=== PATIENT | female | born 1950 | race Caucasian/White ===

== ENCOUNTER 2017-07-01 16:00 | Observation (INO) | payer MEDICARE, BC ==
--- NOTE | 2017-07-01 16:50 | PDOC ---
Rapid Medical Evaluation Time Seen by Provider: 07/01/17 16:48 Medical Evaluation: 07/01/17 16:48 I have performed a brief in-person evaluation of this patient. The patient presents with a chief complaint of: Fatigue w/ nasal congestion, cough and sob x 4 days. H/o asthma, s/p L shoulder surgery 06/16, hypothyroid, HLD Pertinent physical exam findings:Stable w/ ?crackles on lung exam I have ordered the following:ekg/cxr/labs The patient will proceed to the ED for further evaluation.
[2017-07-01 16:53] VITALS: BMI 32.9
[2017-07-01 17:06] LABS: EOS % 0.7 % (0-4.5); HEMATOCRIT 36.1 % (32.4-45.2); HEMOGLOBIN 11.9 GM/dL (10.7-15.3); LYMPH % 19.9 % (8-40); MCH 30.3 pg (25.7-33.7); MCHC 32.9 g/dl (32.0-36.0); MEAN CELL VOLUME 92.2 fl (80-96); MEAN PLT VOLUME 7.4 fl (7.5-11.1); MONO % 15.6 % (3.8-10.2); NEUT % 62.8 % (42.8-82.8); PLATELET COUNT 242 K/MM3 (134-434); RBC 3.91 M/mm3 (3.60-5.2); RDW 13.4 % (11.6-15.6); WHITE BLOOD COUNT 5.2 K/mm3 (4.0-10.0)
--- NOTE | 2017-07-01 17:13 | PDOC ---
History of Present Illness <Vaishali Cunningham - Last Filed: 07/01/17 17:46> - General History Source: Patient Exam Limitations: No Limitations - History of Present Illness Initial Comments: 07/01/17 17:54 The patient is a 67-year-old female with a significant past medical history of HTN, HLD, asthma, and hypothyroidism, and presents to the emergency department with cough, nasal congestion, and shortness of breath for 4 days. She reports worsened shortness of breath today, which prompted the visit to the ED. She states her shortness of breath is worsened when lying flat on her back. She notes having a productive cough with clear phlegm. She states the nasal congestion started yesterday. She reports taking Mucinex and using her inhaler with no significant relief. The patient denies chest pain, headache, and dizziness. The patient denies fever , chills, nausea, vomit, diarrhea and constipation. The patient denies dysuria, frequency, urgency and hematuria. Allergies: penicillins Past Surgical History: L total shoulder replacement (06/06/17) Social History: No toxic habits reported PCP: Dr. Bautista <Denise Enrique - Last Filed: 07/01/17 17:54> <Radha Jackson - Last Filed: 07/02/17 00:57> - General Chief Complaint: Shortness of Breath Stated Complaint: COUGH, WEAKNESS Time Seen by Provider: 07/01/17 16:48 Past History - Past Medical History COPD: No - Suicide/Smoking/Psychosocial Hx Smoking History: Never smoked Have you smoked in the past 12 months: No Information on smoking cessation initiated: No Hx Alcohol Use: No Drug/Substance Use Hx: No Substance Use Type: None <Vaishali Cunningham - Last Filed: 07/01/17 17:46> <Denise Enrique - Last Filed: 07/01/17 17:54> <Radha Jackson - Last Filed: 07/02/17 00:57> - Past Medical History Allergies/Adverse Reactions: Allergies Allergy/AdvReac Type Severity Reaction Status Date / Time Penicillins Allergy Verified 07/01/17 16:54 Home Medications: Ambulatory Orders Atorvastatin Ca [Lipitor] 10 mg PO HS 07/01/17 Chlorthalidone 0 mg PO DAILY 07/01/17 Doxycycline Hyclate 100 mg PO BID #14 capsule 07/01/17 Levothyroxine [Synthroid -] 0 mcg PO DAILY 07/01/17 Review of Systems - Review of Systems Able to Perform ROS?: Yes Comments:: 07/01/17 17:54 GENERAL/CONSTITUTIONAL: No fever or chills. No weakness. HEAD, EYES, EARS, NOSE AND THROAT: No change in vision. No ear pain or discharge. No sore throat. (+) Nasal congestion. CARDIOVASCULAR: (+) Shortness of breath. No chest pain. RESPIRATORY: (+) Cough. No wheezing, or hemoptysis. GASTROINTESTINAL: No nausea, vomiting, diarrhea or constipation. GENITOURINARY: No dysuria, frequency, or change in urination. MUSCULOSKELETAL: No joint or muscle swelling or pain. No neck or back pain. SKIN: No rash NEUROLOGIC: No headache, vertigo, loss of consciousness, or change in strength/ sensation. ENDOCRINE: No increased thirst. No abnormal weight change. HEMATOLOGIC/LYMPHATIC: No anemia, easy bleeding, or history of blood clots. ALLERGIC/IMMUNOLOGIC: No hives or skin allergy. <Denise Enrique - Last Filed: 07/01/17 17:54> *Physical Exam - Vital Signs Last Vital Signs Temp Pulse Resp BP Pulse Ox 99.3 F 98 H 24 134/77 98 07/01/17 16:47 07/01/17 16:47 07/01/17 16:47 07/01/17 16:47 07/01/17 16:47 <Vaishali Cunningham - Last Filed: 07/01/17 17:46> - Vital Signs Last Vital Signs Temp Pulse Resp BP Pulse Ox 99.3 F 98 H 24 134/77 98 07/01/17 16:47 07/01/17 16:47 07/01/17 16:47 07/01/17 16:47 07/01/17 16:47 - Physical Exam Comments: 07/01/17 18:08 GENERAL: Awake, alert, and fully oriented, in no acute distress HEAD: No signs of trauma EYES: PERRLA, EOMI, sclera anicteric, conjunctiva clear ENT: Auricles normal inspection, hearing grossly normal, nares patent, oropharynx clear without exudates. Moist mucosa NECK: Normal ROM, supple, no lymphadenopathy, JVD, or masses LUNGS: (+) Decreased air entry bilaterally. No wheezes, and no crackles HEART: Regular rate and rhythm, normal S1 and S2, no murmurs, rubs or gallops ABDOMEN: Soft, nontender, normoactive bowel sounds. No guarding, no rebound. No masses EXTREMITIES: Normal range of motion, no edema. No clubbing or cyanosis. No cords, erythema, or tenderness NEUROLOGICAL: Cranial nerves II through XII grossly intact. Normal speech, normal gait SKIN: Warm, Dry, normal turgor, no rashes or lesions noted. <Denise Enrique - Last Filed: 07/01/17 17:54> - Vital Signs Last Vital Signs Temp Pulse Resp BP Pulse Ox 100.6 F H 112 H 20 131/60 95 07/01/17 19:49 07/01/17 19:49 07/01/17 19:49 07/01/17 19:49 07/01/17 19:49 <Radha Jackson - Last Filed: 07/02/17 00:57> ED Treatment Course - LABORATORY CBC & Chemistry Diagram: 07/01/17 16:56 07/01/17 16:56 - ADDITIONAL ORDERS Additional order review: 07/01/17 16:56 RBC 3.91 MCV 92.2 MCHC 32.9 RDW 13.4 MPV 7.4 L Neutrophils % 62.8 Lymphocytes % 19.9 Monocytes % 15.6 H Eosinophils % 0.7 Basophils % 1.0 <Vaishali Cunningham - Last Filed: 07/01/17 17:46> - LABORATORY CBC & Chemistry Diagram: 07/01/17 16:56 07/01/17 16:56 - ADDITIONAL ORDERS Additional order review: Laboratory Results 07/01/17 16:56 Sodium 134 L Potassium 3.7 Chloride 99 Carbon Dioxide 28 Anion Gap 7 L BUN 12 Creatinine 1.1 H Creat Clearance w eGFR 49.25 Random Glucose 109 H Calcium 8.4 L Total Bilirubin 0.5 AST 15 ALT 20 Alkaline Phosphatase 101 Creatine Kinase 97 Troponin I < 0.02 Total Protein 6.9 Albumin 3.4 07/01/17 16:56 RBC 3.91 MCV 92.2 MCHC 32.9 RDW 13.4 MPV 7.4 L Neutrophils % 62.8 Lymphocytes % 19.9 Monocytes % 15.6 H Eosinophils % 0.7 Basophils % 1.0 <Denise Enrique - Last Filed: 07/01/17 17:54> - LABORATORY CBC & Chemistry Diagram: 07/01/17 16:56 07/01/17 16:56 - ADDITIONAL ORDERS Additional order review: Laboratory Results 07/01/17 07/01/17 17:35 16:56 Sodium 134 L Potassium 3.7 Chloride 99 Carbon Dioxide 28 Anion Gap 7 L BUN 12 Creatinine 1.1 H Creat Clearance w eGFR 49.25 Random Glucose 109 H Calcium 8.4 L Total Bilirubin 0.5 AST 15 ALT 20 Alkaline Phosphatase 101 Creatine Kinase 97 Troponin I < 0.02 Total Protein 6.9 Albumin 3.4 Urine Color Yellow Urine Appearance Clear Urine pH 7.0 Ur Specific [place] 1.014 Urine Protein Negative Urine Glucose (UA) Negative Urine Ketones Negative Urine Blood Negative Urine Nitrite Negative Urine Bilirubin Negative Urine Urobilinogen 2.0 H Urine WBC (Auto) 4 Urine RBC (Auto) 4 Ur Epithelial Cells Rare 07/01/17 20:05 Influenza Types A,B Antigen (JOHN) - Final Nasopharyngeal Swab - Final 07/01/17 16:56 RBC 3.91 MCV 92.2 MCHC 32.9 RDW 13.4 MPV 7.4 L Neutrophils % 62.8 Lymphocytes % 19.9 Monocytes % 15.6 H Eosinophils % 0.7 Basophils % 1.0 - Medications Given in the ED: ED Medications Discontinued Medications Generic Name Dose Route Start Last Admin Trade Name Bretq PRN Reason Stop Dose Admin Acetaminophen 975 mg 07/01/17 19:51 07/01/17 20:10 Tylenol - PO 07/01/17 19:52 975 mg ONCE ONE Administration Albuterol Sulfate 1 amp 07/01/17 18:59 07/01/17 19:40 Ventolin 0.083% Nebulizer Soln - NEB 07/01/17 19:00 1 amp ONCE ONE Administration Albuterol/Ipratropium 1 amp 07/01/17 17:45 07/01/17 19:18 Duoneb - NEB 07/01/17 18:31 1 amp Q15M DEMAR Administration Prednisone 40 mg 07/01/17 17:31 07/01/17 17:55 Deltasone - PO 07/01/17 17:32 40 mg ONCE ONE Administration <Radha Jackson - Last Filed: 07/02/17 00:57> Medical Decision Making - Medical Decision Making 07/01/17 17:46 Pt presents to the ED complaining of cough and nasal congestion consistent with viral uri for the last 5 days and shortness of breath for the last day. History of asthma that is often exacerbated by URIs and states that these symptoms are similar. Likely asthma exacerbation, but differential includes PNA , unlikely chf or acs. Will check labs and cxr, treat with duonebs and steroid and reassess. <Vaishali Cunningham - Last Filed: 07/01/17 17:46> - Medical Decision Making 07/01/17 21:03 I picked up the patient on signout. She has fever in the ER 100.6. Flu culture is normal; UA normal. Labs normal. CXR demonstrates right base of lung increased markings. She will be treated with a dose of IV doxy in the ER for community acquired pneumonia, as she is allergic to PCN. She will be admitted to the hospitalist for generalized weakness, hypoxemia, pneumonia and asthma exacerbation. <Radha Jackson - Last Filed: 07/02/17 00:57> *DC/Admit/Observation/Transfer <Vaishali Cunningham - Last Filed: 07/01/17 17:46> - Attestations Scribe Attestion: 07/01/17 18:08 Documentation prepared by Denise Enrique, acting as medical device engineer for Vaishali Cunningham MD, /DO. <Denise Enrique - Last Filed: 07/01/17 17:54> - Discharge Dispostion Admit: Yes <Radha Jackson - Last Filed: 07/02/17 00:57> Diagnosis at time of Disposition: Hypoxia, Pneumonia - Discharge Dispostion Condition at time of disposition: Guarded
[2017-07-01] MEDS ORDERED: predniSONE 20 MG TABLET (UD) PO ONE (17:31)
[2017-07-01 17:35] LABS: ALBUMIN 3.4 g/dl (3.4-5.0); ALK PHOS 101 U/L (45-117); ANION GAP 7 (8-16); BILIRUBIN,TOTAL 0.5 mg/dL (0.2-1.0); BLOOD UREA NITROGEN 12 mg/dL (7-18); CALCIUM 8.4 mg/dL (8.5-10.1); CHLORIDE 99 mmol/L (98-107); CO2 28 mmol/L (21-32); GLUCOSE,RANDOM 109 mg/dL (74-106); POTASSIUM 3.7 mmol/L (3.5-5.1); SGOT/AST 15 U/L (15-37); SGPT/ALT 20 U/L (12-78); SODIUM 134 mmol/L (136-145)
[2017-07-01 17:49] LABS: CREATININE 1.1 mg/dL (0.55-1.02); TOT PROT 6.9 g/dl (6.4-8.2)
[2017-07-01] MEDS ORDERED: predniSONE 20 MG TABLET (UD) ONE (17:49)
[2017-07-01] MEDS ORDERED: ALBUTEROL SO4 0.083% IH SOL 2.5 MG/3 ML VIAL.NEB. NEB ONE ×4 (17:49→18:59)
[2017-07-01] MEDS: ALBUTEROL SO4 2.5/IPRATROPIUM 0.5 INH SOL 3 ML VIAL.NEB. NEB SCH ×4 (17:55→19:18)
[2017-07-01 17:56] LABS: URINE APPEARANCE CLEAR; URINE BILIRUBIN NEGATIVE (NEGATIVE); URINE BLOOD NEGATIVE (NEGATIVE); URINE COLOR YELLOW; URINE GLUCOSE (UA) NEGATIVE (NEGATIVE); URINE KETONE NEGATIVE (NEGATIVE); URINE LEUK ESTERASE TRACE (NEGATIVE); URINE NITRITE NEGATIVE (NEGATIVE); URINE PROTEIN NEGATIVE (NEGATIVE)
[2017-07-01 18:08] LABS: EPI CELLS RARE /HPF (FEW)
[2017-07-01] MEDS ORDERED: ACETAMINOPHEN 500 MG TABLET (FP) PO ONE (19:51)
[2017-07-01] MEDS ORDERED: ACETAMINOPHEN 325 MG TABLET (FP) ONE (20:04)
[2017-07-01] MEDS ORDERED: SODIUM CHLORIDE 0.9% 500 ML INFUS.BAG IV ONE (20:53)
[2017-07-01] MEDS ORDERED: DOXYCYCLINE INJECTION 100 MG in DEXTROSE 5%-WATER - 150 ML IVPB ONE (20:54)
[2017-07-01] MEDS ORDERED: DOXYCYCLINE HYCLATE 100 MG VIAL ONE (21:09)
[2017-07-01] MEDS ORDERED: ALBUTEROL SO4 2.5/IPRATROPIUM 0.5 INH SOL 3 ML VIAL.NEB. NEB PRN (23:01)
[2017-07-01] MEDS ORDERED: ALBUTEROL SO4 0.5 % INH SOLN 2.5 MG/0.5 ML VIAL.NEB. NEB PRN (23:09)
--- NOTE | 2017-07-01 23:09 | HP ---
CHIEF COMPLAINT: Shortness of Breath PCP: Evelin Bautista HISTORY OF PRESENT ILLNESS: 67 yo F with pmhx of HTN, HLD, hypothyriodism, and asthma (with no hx of hospitalizations of intubations who presents with shortness of breath X4 days. No Fevers or chills. No chest pain or pressure. States she has had increased use of her inhaler in past day and several overnight awakenings in past 4 days to use her inhaler. Does note cough and congestion. States she has had her flu shot. No rhinorrhea. White sputum production. ER course was notable for: (1) Nebs (2) EKG: NSR no acute process (3) CXR- Pending Recent Travel:NO PAST MEDICAL HISTORY: As Above PAST SURGICAL HISTORY: Shoulder Sx (L) 06/06- Replacement Social History: Smoking: No Alcohol: No Drugs: NO Family History: N/A Allergies: PCN Penicillins Allergy (Verified 07/01/17 16:54) HOME MEDICATIONS: Home Medications Medication Instructions Recorded Atorvastatin Ca [Lipitor] 10 mg PO HS 07/01/17 Chlorthalidone 0 mg PO DAILY 07/01/17 Doxycycline Hyclate 100 mg PO BID #14 capsule 07/01/17 Levothyroxine [Synthroid -] 0 mcg PO DAILY 07/01/17 REVIEW OF SYSTEMS CONSTITUTIONAL: Absent: fever, chills, diaphoresis, generalized weakness, malaise, loss of appetite, weight change HEENT: Absent: rhinorrhea, nasal congestion, throat pain, throat swelling, difficulty swallowing, mouth swelling, ear pain, eye pain, visual changes CARDIOVASCULAR: Absent: chest pain, syncope, palpitations, irregular heart rate, lightheadedness , peripheral edema RESPIRATORY: Absent: cough, + shortness of breath, dyspnea with exertion, orthopnea, wheezing , stridor, hemoptysis GASTROINTESTINAL: Absent: abdominal pain, abdominal distension, nausea, vomiting, diarrhea, constipation, melena, hematochezia GENITOURINARY: Absent: dysuria, frequency, urgency, hesitancy, hematuria, flank pain, genital pain MUSCULOSKELETAL: Absent: myalgia, arthralgia, joint swelling, back pain, neck pain SKIN: Absent: rash, itching, pallor HEMATOLOGIC/IMMUNOLOGIC: Absent: easy bleeding, easy bruising, lymphadenopathy, frequent infections ENDOCRINE: Absent: unexplained weight gain, unexplained weight loss, heat intolerance, cold intolerance NEUROLOGIC: Absent: headache, focal weakness or paresthesias, dizziness, unsteady gait, seizure, mental status changes, bladder or bowel incontinence PSYCHIATRIC: Absent: anxiety, depression, suicidal or homicidal ideation, hallucinations. PHYSICAL EXAMINATION Vital Signs - 24 hr 07/01/17 07/01/17 16:47 19:49 Temperature 99.3 F 100.6 F H Pulse Rate 98 H Pulse Rate [ 112 H Right Radial] Respiratory 24 20 Rate Blood Pressure 134/77 Blood Pressure 131/60 [Left Arm] O2 Sat by Pulse 98 95 Oximetry (%) GENERAL: Awake, alert, and fully oriented, in no acute distress. HEAD: Normal with no signs of trauma. EYES: Pupils equal, round and reactive to light, extraocular movements intact, sclera anicteric, conjunctiva clear. No lid lag. EARS, NOSE, THROAT: Ears normal, nares patent, oropharynx clear without exudates. Moist mucous membranes. NECK: Normal range of motion, supple without lymphadenopathy, JVD, or masses. LUNGS: Mild expiratory Wheezing bilateral HEART: Regular rate and rhythm, normal S1 and S2 without murmur, rub or gallop. ABDOMEN: Soft, nontender, not distended, normoactive bowel sounds, no guarding, no rebound, no masses. No hepatomegaly or splenomegaly. MUSCULOSKELETAL: Normal range of motion at all joints. No bony deformities or tenderness. No CVA tenderness. UPPER EXTREMITIES: 2+ pulses, warm, well-perfused. No cyanosis. No clubbing. No peripheral edema. LOWER EXTREMITIES: 2+ pulses, warm, well-perfused. No calf tenderness. No peripheral edema. NEUROLOGICAL: Cranial nerves II-XII intact. Normal speech. Gait Not assessed PSYCHIATRIC: Cooperative. Good eye contact. Appropriate mood and affect. SKIN: Warm, dry, normal turgor, no rashes or lesions noted, normal capillary refill. Laboratory Results - last 24 hr 07/01/17 07/01/17 07/01/17 16:56 16:56 17:35 WBC 5.2 RBC 3.91 Hgb 11.9 Hct 36.1 MCV 92.2 MCH 30.3 MCHC 32.9 RDW 13.4 Plt Count 242 MPV 7.4 L Neutrophils % 62.8 Lymphocytes % 19.9 Monocytes % 15.6 H Eosinophils % 0.7 Basophils % 1.0 Sodium 134 L Potassium 3.7 Chloride 99 Carbon Dioxide 28 Anion Gap 7 L BUN 12 Creatinine 1.1 H Creat Clearance w eGFR 49.25 Random Glucose 109 H Calcium 8.4 L Total Bilirubin 0.5 AST 15 ALT 20 Alkaline Phosphatase 101 Creatine Kinase 97 Troponin I < 0.02 Total Protein 6.9 Albumin 3.4 Urine Color Yellow Urine Appearance Clear Urine pH 7.0 Ur Specific [place] 1.014 Urine Protein Negative Urine Glucose (UA) Negative Urine Ketones Negative Urine Blood Negative Urine Nitrite Negative Urine Bilirubin Negative Urine Urobilinogen 2.0 H Ur Leukocyte Esterase Negative Urine WBC (Auto) 4 Urine RBC (Auto) 4 Ur Epithelial Cells Rare CXR- Final Read Pending, no acute process ASSESSMENT/PLAN: 67 F with pmhx of HTN, HLD, hypothyriodism, and asthma who presents with shortness of breath, being admitted for acute asthma exacerbation. 1.) Acute Exacerbation of Asthma - Now improved - Duonebs ATC/PRN - PEFR - C/W Prednisone and taper 2.) Hypothyriodism - PT. DOES not know dose - NEED TO conifrm with pharamacy in am, or will bring in 3.) HTN - C/W Chlorothalidone 4.) HLD - C/W Statin 5.) ARF - Mild - Trend - IVF recieved in ED - Renally Dose meds 6.) Dvt Ppx - Ambulate - Place in Obs Visit type - Emergency Visit Emergency Visit: Yes ED Registration Date: 07/01/17 Care time: The patient presented to the Emergency Department on the above date and was hospitalized for further evaluation of their emergent condition. - New Patient This patient is new to me today: Yes Date on this admission: 07/02/17 - Critical Care Critical Care patient: No
[2017-07-02] MEDS: ALBUTEROL SO4 2.5/IPRATROPIUM 0.5 INH SOL 3 ML VIAL.NEB. NEB SCH ×2 (02:54→05:38)
[2017-07-02] MEDS ORDERED: ALBUTEROL SO4 2.5/IPRATROPIUM 0.5 INH SOL 3 ML VIAL.NEB. NEB SCH (06:00)
[2017-07-02] MEDS ORDERED: ACETAMINOPHEN 325 MG TABLET (FP) ONE (07:21)
[2017-07-02 07:24] LABS: HEMATOCRIT 31.8 % (32.4-45.2); HEMOGLOBIN 10.5 GM/dL (10.7-15.3); MCH 30.4 pg (25.7-33.7); MCHC 32.9 g/dl (32.0-36.0); MEAN CELL VOLUME 92.3 fl (80-96); MEAN PLT VOLUME 7.9 fl (7.5-11.1); PLATELET COUNT 213 K/MM3 (134-434); RBC 3.45 M/mm3 (3.60-5.2); RDW 13.6 % (11.6-15.6)
[2017-07-02] MEDS ORDERED: ACETAMINOPHEN 500 MG TABLET (FP) PO ONE (07:24)
[2017-07-02 08:11] LABS: ANION GAP 14 (8-16); BLOOD UREA NITROGEN 13 mg/dL (7-18); CALCIUM 9.1 mg/dL (8.5-10.1); CHLORIDE 100 mmol/L (98-107); CO2 23 mmol/L (21-32); GLUCOSE,RANDOM 170 mg/dL (74-106); POTASSIUM 3.3 mmol/L (3.5-5.1); SODIUM 137 mmol/L (136-145)
[2017-07-02] MEDS ORDERED: predniSONE 20 MG TABLET (UD) PO SCH (10:00)
[2017-07-02] MEDS ORDERED: POTASSIUM CHLORIDE TABS 20 MEQ TABLET.ER (FP) PO ONE ×2 (10:45→10:56)
[2017-07-02] MEDS ORDERED: predniSONE 20 MG TABLET (UD) ONE (10:55)
[2017-07-02 12:06] VITALS: BP 132/67; PULSE 76; TEMP 98.2
--- NOTE | 2017-07-02 15:49 | PN ---
Teaching Attending Note Name of Resident: Elza Dupont ATTENDING PHYSICIAN STATEMENT I saw and evaluated the patient. I reviewed the resident's note and discussed the case with the resident. I agree with the resident's findings and plan as documented. SUBJECTIVE: seen at 9:30 am no fever or chills . NO SOB. feels much better , denies productive cough, fever at home . walked in hallway with no SOB OBJECTIVE: NAD , pleasant and cooperative CV: RRR. Lungs : CTAB , good air entry Ext : no edema ASSESSMENT AND PLAN: 67 y/o lady withh/o Asthma, hyperlipidemia and hypothyroidism who presented with SOB and was diagnosed with Asthma exacerbation 1- Acute asthma exacerbation: significantly improved - prednisone taper - advair - albuterol inhaler - No evidence of PNA. - notified about the R rib density , need to be followed as out pt -- low grade fever x 1 . no evidence of bacterial infectin , possibly viral - Flu swab neg 2- cont home med s dc home
--- NOTE | 2017-07-02 22:47 | DS ---
Physical Exam: SUBJECTIVE: Patient seen and examined OBJECTIVE: Vital Signs Period Temp Pulse Resp BP Sys/Judge Pulse Ox Last 24 Hr 97.7 F-98.2 F 76-86 16-18 129-138/66-70 94-98 PHYSICAL EXAM GENERAL: The patient is awake, alert, and fully oriented, in no acute distress. HEAD: Normal with no signs of trauma. EYES: PERRL, extraocular movements intact, sclera anicteric, conjunctiva clear. ENT: Ears normal, nares patent, oropharynx clear without exudates, moist mucous membranes. NECK: Trachea midline, full range of motion, supple. LUNGS: Breath sounds equal, clear to auscultation bilaterally, no wheezes, no crackles, no accessory muscle use. HEART: Regular rate and rhythm, S1, S2 without murmur, rub or gallop. ABDOMEN: Soft, nontender, nondistended, normoactive bowel sounds, no guarding, no rebound, no hepatosplenomegaly, no masses. EXTREMITIES: 2+ pulses, warm, well-perfused, no edema. NEUROLOGICAL: Cranial nerves II through XII grossly intact. Normal speech, gait not observed. PSYCH: Normal mood, normal affect. SKIN: Warm, dry, normal turgor, no rashes or lesions noted. LABS Laboratory Results - last 24 hr 07/01/17 07/02/17 07/02/17 17:35 06:26 06:26 WBC 5.0 RBC 3.45 L Hgb 10.5 L D Hct 31.8 L MCV 92.3 MCH 30.4 MCHC 32.9 RDW 13.6 Plt Count 213 MPV 7.9 Sodium 137 Potassium 3.3 L Chloride 100 Carbon Dioxide 23 Anion Gap 14 BUN 13 Creatinine 1.0 Random Glucose 170 H D Calcium 9.1 Ur Leukocyte Esterase Negative HOSPITAL COURSE: Date of Admission:07/01/17 Date of Discharge: 07/02/17 Discharge Summary Reason For Visit: HYPOXIA,PNEUMONIA - SHORT STAY Condition: Improved - Instructions Diet, Activity, Other Instructions: You were treated in the hospital for an acute asthma exacerbation with steroids and nebulizer treatments. Recommendations: -You can resume your regular daily activities and diet as tolerated. Medications: -You can resume your regular home medications with the following changes: (1) Continue to use your Albulterol inhaler 1-2 puffs as needed every 4-6hours (2) Take Advair inhaler 1 puff twice per day until it runs out. You can then resume taking your Pulmicort inhaler as directed (2) You are on a Prednisone (a steroid) taper. Your first dose will be tomorrow. Take it in the morning with food following this schedule: 07/03 - Take 40mg once 07/04-07/06 - Take 30mg daily 07/07-07/09 - Take 20mg daily 07/10- - Take 10mg daily Follow-ups: -Make an appointment to see your primary care physician within 1-2 weeks for post-hospitalization evaluation. -A lesion was found on your R rib. Please let your primary care physician know about this, and this should be re-evaluated. Please return to the Emergency Department if you have worsening shortness of breath, fever, chills, or any new or worsening symptoms. Referrals: Evelin Bautista MD [Primary Care Provider] - Disposition: HOME - Home Medications Comprehensive Discharge Medication List: Ambulatory Orders Atorvastatin Ca [Lipitor] 10 mg PO HS 07/01/17 Chlorthalidone 25 mg PO DAILY 07/01/17 Levothyroxine [Synthroid -] 50 mcg PO DAILY 07/01/17 Albuterol Sulfate [Proventil HFA Inhaler -] 1 - 2 inh PO QID PRN #1 inhaler 08/18 Aspirin [ASA -] 325 mg PO DAILY #30 tablet 07/02/17 Prednisone See Taper PO DAILY #22 tablet 07/02/17 Salmeterol/Fluticasone [Advair 250Mcg/50Mcg -] 1 inh IH BID #1 inh 07/02/17
--- NOTE | 2017-07-03 13:22 | EKG ---
Test Reason : Blood Pressure : / mmHG Vent. Rate : 086 BPM Atrial Rate : 086 BPM P-R Int : 172 ms QRS Dur : 088 ms QT Int : 354 ms P-R-T Axes : 050 048 061 degrees QTc Int : 423 ms NORMAL SINUS RHYTHM NORMAL ECG NO PREVIOUS ECGS AVAILABLE Confirmed by KIKI CUETO MD ([id number]) on 07/03/2017 1:21:52 PM Referred By: Confirmed By:KIKI CUETO MD
== END 2017-07-02 12:27 | disposition home or self-care (01) ==
LOC: JER 16:00 → JERBED 22:34 → UNDOADMOB 22:57 → JERBED 22:57
PROVIDERS: ADMIT Internal Medicine; ATTEND Internal Medicine
PROC: 3E03329 Introduction of Other Anti-infective into Peripheral Vein, Percutaneous Approach (ICD-10-PCS; principal; 2017-07-01)
PROC: 3E0337Z Introduction of Electrolytic and Water Balance Substance into Peripheral Vein, Percutaneous Approach (ICD-10-PCS; 2017-07-01)
PROC: 3E0F7GC Introduction of Other Therapeutic Substance into Respiratory Tract, Via Natural or Artificial Opening (ICD-10-PCS; 2017-07-01)
DX: R09.02 Hypoxemia (principal); J18.9 Pneumonia, unspecified organism; J45.901 Unspecified asthma with (acute) exacerbation; N17.9 Acute kidney failure, unspecified; I10 Essential (primary) hypertension; E78.5 Hyperlipidemia, unspecified; E03.9 Hypothyroidism, unspecified; Z88.0 Allergy status to penicillin
CPT/HCPCS: 36415; 71045-TC; 80048; 80053; 81003; 81015; 82550; 84484; 85025; 85027; 87804; 93005; 93010; 94640; 96365; 99285-25; G0378